=== PATIENT | female | born 1980 | race Caucasian/White ===

== ENCOUNTER 2018-12-02 06:03 | Day surgery (SDC) | payer OTHER, SELFPAY ==
[2018-12-02 06:47] VITALS: BP 144/92; PULSE 92; RESP 16; TEMP 36.7; O2SAT 96; BMI 43.8
[2018-12-02] MEDS: Lactated Ringers 1,000 ML 100 ML IV (06:57)
--- NOTE | 2018-12-02 07:34 | PCM.OPRPT ---
Problem List (1) Stress incontinence (female) (male) Status: Acute (2) Intrinsic (urethral) sphincter deficiency (ISD) Status: Acute (3) Urethral hypermobility Status: Acute Report of Operation Date of Procedure: 12/02/18 Pre-Operative Diagnosis: stress urinary incontinence, urethral hypermobility, ISD Post-Operative Diagnosis: same Surgery/Procedure Performed:: Alits midurethral sling, cystoscopy Description of Surgical Findings:: The patient's tissue was very thin and fragile, tearing very easily and holding Allis clamps with difficulty. The first sling was not tight enough and access to the tensioning suture was lost so this mesh was cut and a second sling was inserted. Type of Anesthesia:: General Special Medications: ancef Estimated Blood Loss (mL): 250cc Description of Procedure: Patient is a 38-year-old female with significant stress incontinence and intrinsic sphincter deficiency who desired to proceed with surgical intervention. Informed consent was obtained. Is taken to the operating room and placed on the operating room table. Anesthesia monitored the head, neck, airway, IV access and vital signs throughout the case. Once anesthesia was appropriately administered the patient was placed into dorsal lithotomy in Trendelenburg position and was prepped and draped in usual sterile fashion. During this time the patient proceeded to leak all over the operating room table. The Jones catheter was inserted without difficulty and by this time only 20 cc remained in her bladder. The mid urethra was injected submucosally with lidocaine with epinephrine. A midline incision was made and dissection both sharp and blunt ensued until the periurethral space was able to accommodate the sling. The sling was then inserted first on the right side, using the trocar. During passage of the sling the vaginal mucosa was very friable and a tear occurred on the patient's right side lateral from the incision. The other side of the sling was then inserted. The sling was tightened and the tensioning suture was cut. The sling lay flat against the urethra. Incision and mucosal tear was closed using running interlocking 2-0 Vicryl. Upon removal of the Jones catheter the patient was continuously leaking and it was obvious that the sling was not tight enough. A cystourethroscopy revealed no evidence of entrance into the urinary bladder or the urethra and bilateral ureteral jets were observed. At this time the incision was opened and dissection for the tensioning suture was done. I was unable to locate it. At this time due to the dissection the sling loosened. The decision was made to then cut the mesh from the sling and leave the tines in situ as the patient's tissue was very fragile. A second sling was then inserted using the same technique and the tensioning suture was left exiting the midline incision. The incision was then closed and a cystourethroscopy was performed. There were no entrances of mesh or suture into the urethra or the urinary bladder. Bilateral ureteral jets were observed. At this point the urinary incontinence was significantly decreased. I felt uncomfortable tightening the sling any further. I cut the tensioning suture and the patient was taken to the recovery room in good condition. Grafts/Implants Used: Altis midurethral sling - Complications none - Admit VTE Documentation VTE Present on Admission: Yes VTE Mechan Device Prophylaxis: SCD's VTE Pharm Prophylaxis ordered?: No Reason prophylaxis not ordered:: Treatment Not Indicated
--- NOTE | 2018-12-02 07:36 | DCINST_ITS ---
Discharge Diet: No Restrictions Discharge Activity: May not drive while taking narcotic pain medications., May Shower, - - no tub bathing, no swimming, no sexual activity, nothing per vagina, no lifting over 5 pounds, no strenuous activity or exercise Call your doctor if your incision/area has: Continuous Slow Oozing, Sudden Increased Bleeding, Increased Pain/ Swelling, Foul Smelling Discharge Call your doctor if you observe: Fever of 101 or Higher, Inability to urinate, Chest pain, Calf discomfort, Uncontrolled pain Allergies/Adverse Reactions: Allergies No Known Allergies Allergy (Verified 11/25/18 11:05) Medications to take at Discharge Desogestrel-Ethinyl Estradiol [Apri 28 Day Tablet] 1 ea PO DAILY 11/25/18 Montelukast [Singulair] 10 mg PO DAILY 11/25/18 Zolpidem Tartrate [Ambien] 10 mg PO QHS 11/25/18 Desvenlafaxine Succinate [Desvenlafaxine Succinate ER] 50 mg PO DAILY 12/02/18 Orders to be completed after discharge: ,Urine Time Frame: 12/02/18, Facility: [facility], Location: Laboratory Primary Care Physician: Teresa Minor MD [Primary Care Provider] - Test Results: Test results from this visit will be discussed in further detail at your follow- up appointment, if applicable. Please Follow Up With: Magdalene Conti MD When: 2 weeks, call for appt Proposed Discharge Date: 12/02/18
[2018-12-02 09:01] VITALS: BP 136/84; BP 144/92; PULSE 103; RESP 16; TEMP 36.3; O2SAT 93
[2018-12-02 09:15] VITALS: BP 140/91; BP 144/92; PULSE 110; RESP 16; O2SAT 96
[2018-12-02 09:31] VITALS: BP 144/92; BP 150/93; PULSE 103; RESP 14; O2SAT 95
[2018-12-02 09:34] VITALS: BP 144/92; BP 153/93; PULSE 100; RESP 14; TEMP 37.1; O2SAT 95
[2018-12-02 12:01] VITALS: BP 131/91; BP 144/92; PULSE 81; RESP 16; TEMP 36.2; O2SAT 96
== END 2018-12-02 12:03 | disposition home or self-care (01) ==
LOC: SDC 06:04 → AC 06:06
PROVIDERS: Family Provider Family Medicine; PCP Family Medicine; Referring Provider Urology; Visit Provider Urology
PROC: 0TJB8ZZ Inspection of Bladder, Via Natural or Artificial Opening Endoscopic (ICD-10-PCS; CPT 57288; principal; 2018-12-02 07:20)
DX: N36.42 Intrinsic sphincter deficiency (ISD) (principal); N39.3 Stress incontinence (female) (male); N36.41 Hypermobility of urethra; M79.7 Fibromyalgia; N39.41 Urge incontinence; R35.1 Nocturia; R35.0 Frequency of micturition
CPT/HCPCS: 57287; J7120; J2405

== ENCOUNTER 2023-02-22 10:39 | Day surgery (SDC) | payer MEDICAID, SELFPAY ==
--- NOTE | 2023-02-22 | FORE_PTH ---
PATIENT: SAPPHIRE BUCIO [place] [facility] [place][id number] AGE/SX: 42/F ROOM: RE02/22/[address]: Dr. Magdalene Conti MD : [id number] BED: DIS: 02/22/2023 SPEC #: [id number] RECD: 02/22/23 18:38 STATUS: JORDANA REHimanshu #: [id number] ALVARO: 02/22/23 00:[address]: Magdalene Conti DEPT: SURGICAL PATHOLOGY RECD BY: Sam Mora ENTERED: 02/25/23 09:37 SP TYPE: FOREIGN B AYLEEN DR: Dr. Teresa Minor MD Tissues: FOREIGN BODY Procedures: Surgery Specimen Level I HEADER OPERATION: Pelvic exam, Vaginal mesh excision PRE-OP DIAGNOSIS: Vaginal mesh exposure TISSUE SUBMITTED: Excised vaginal mesh GROSS DIAGNOSIS A piece of mesh, clinically vaginal mesh (gross only). SABINA:[email or web address] 02/26/2023 MICROSCOPIC DESCRIPTION Slides are reviewed. GROSS DESCRIPTION Received in fixative is one container labeled with the patient's name and designated excised vaginal mesh. The specimen consists of a piece of mesh measuring 2.0 x 0.5 x 0.1 cm. The specimen is for gross identification only. / SJ:pardeep 02/25/2023 CPT: 95579
[2023-02-22 11:08] VITALS: BP 107/81; PULSE 65; RESP 16; TEMP 36.1; O2SAT 98; BMI 40.7
[2023-02-22] MEDS: Lactated Ringers 1,000 ML 15 ML IV (11:10)
[2023-02-22 11:29] LABS: Internal QC Validated? YES +Cl - CLEAR BKGD; Pregnancy, Urine Negative Negative
[2023-02-22] MEDS: Cefazolin 2 GM in 0.9% Normal Saline (100mL Bag) 100 ML IV (15:28)
--- NOTE | 2023-02-22 16:00 | DCINST_ITS ---
Discharge Instructions Diet Discharge Diet: No restrictions Activity Discharge Activity: May Shower May resume sexual activity in: - (After given the okay by the doctor) Additional Activity Instructions:: No swimming, no hot tubs, no tub bathing Dressing / Incision Call your doctor if your incision/area has: Continuous Slow Oozing, Sudden Increased Bleeding, Increased Pain/ Swelling, Increased Redness, Foul Smelling Discharge and Swelling at the incision site Call your doctor if you observe: Fever of 101 or Higher, Inability to urinate and Inability to have a bowel movement Follow Up Care Please Follow Up With: Magdalene Conti MD When: Follow-up in the office in 2 weeks, the office should call her to make that appointment Test Results: Test results from this visit will be discussed in further detail at your follow- up appointment, if applicable. Discharge Plan Admission Attending Provider: Magdalene Conti Primary Care Provider: Teresa Minor Discharge Orders/Prescriptions Prescriptions: New oxycodone-acetaminophen [Percocet] 5-325 mg tablet 1 tab PO Q8H PRN (Reason: pain) 3 Days Qty: 10 0RF Continued zolpidem 10 MG tablet 10 mg PO QHS methylprednisolone 4 mg tablets,dose pack 4 mg PO DAILY Patient Comments: TAKE BY MOUTH DIRECTED ON PACKAGE desvenlafaxine succinate 25 mg tablet extended release 24 hr 25 mg PO DAILY Referrals / Follow Up: Teresa Minor MD [Primary Care Provider] - Disposition Disposition (needs filled in before D/C Order can be placed): Home, Self Care
--- NOTE | 2023-02-22 16:03 | PCM.OPRPT ---
Report of Operation Date of Procedure: 02/22/23 Pre-Operative Diagnosis: Vaginal mesh exposure Post-Operative Diagnosis: Same Surgery/Procedure Performed:: Cystoscopy, excision of exposed vaginal mesh Surgeon: Magdalene Conti Type of Anesthesia: General Specimen's removed: Exposed vaginal mesh Description of Procedure: The patient is a 42-year-old female who had a difficult mid urethral sling insertion approximately 4 years ago. She presented to the office last week reporting vaginal pain and that her had been injured during intercourse. On examination she has a mesh exposure on the right side of her urethra. She now presents for cystoscopy and excision of vaginal mesh exposure. Informed consent was obtained. The patient was taken to the operating room and placed on the operating room table. Anesthesia monitored the head, neck, airway, IV access and vital signs throughout the case. Once anesthesia was appropriately ministered, the patient was placed into dorsolithotomy position was prepped and draped in usual sterile fashion. The cystoscope was inserted under direct visualization into the urinary bladder. The bladder mucosa as well as the urethra were directly visualized revealing no evidence of mesh exposure, foreign body, mass, erythema or abnormality. At this time the cystoscope was removed and a Jones catheter was inserted and the bladder was drained. The vaginal mesh that was exposed was grasped with a hemostat. Metzenbaums were used to dissect this far laterally as possible towards the obturator foramen. The mesh was then excised and the area was irrigated profusely. The mesh was submitted for specimen. The decision was made to leave the area open for secondary healing. The vaginal opening is only 5 mm in size. There were no other abnormalities identified at this time. She was awakened and taken to the recovery room in good condition. Complications None Admit VTE Documentation VTE Present on Admission: Yes VTE Mechan Device Prophylaxis: SCD's VTE Pharm Prophylaxis ordered?: No Reason prophylaxis not ordered:: Treatment Not Indicated
[2023-02-22 16:05] VITALS: BP 107/81; BP 119/84; PULSE 67; RESP 16; TEMP 36.2; O2SAT 97
[2023-02-22 16:10] VITALS: BP 107/81; BP 126/78; PULSE 65; RESP 16; O2SAT 97
[2023-02-22 16:15] VITALS: BP 107/81; PULSE 65; RESP 16; O2SAT 95
[2023-02-22 16:18] VITALS: BP 107/81; BP 122/70; PULSE 63; RESP 16; TEMP 36.8; O2SAT 95
[2023-02-22 16:47] VITALS: BP 107/81; BP 128/66; PULSE 66; RESP 16; TEMP 36.9; O2SAT 98
== END 2023-02-22 16:50 | disposition home or self-care (01) ==
LOC: SDC 10:41 → AC 10:43
PROVIDERS: PCP Family Medicine; Referring Provider Urology; Visit Provider Urology
PROC: 0TJB8ZZ Inspection of Bladder, Via Natural or Artificial Opening Endoscopic (ICD-10-PCS; CPT 57410; principal; 2023-02-22 12:20)
DX: T83.721A Exposure of implanted vaginal mesh into vagina, initial encounter (principal); Y76.8 Miscellaneous obstetric and gynecological devices associated with adverse incidents, not elsewhere classified
CPT/HCPCS: 57295; 00940; 88304; 81025; 88300; J7120; J2405